=== PATIENT | female | born 1995 | race Caucasian/White ===

== ENCOUNTER 2016-06-23 01:59 | Emergency (ER) | payer MEDICAID ==
--- NOTE | 2016-06-23 02:25 | EDPHY ---
H & P Smoking Status: Never smoked Time Seen by Provider: 06/23/16 02:13 HPI/ROS: HPI Depression. 21-year-old female by private vehicle. She reports that she was at home tonight. She reports that she was drinking some whiskey mix with juice. She estimates 3-4 drinks. She reports that she was not taking a shower and became more depressed. She had some suicidal thoughts but denies any plan for action. She denies being suicidal at this time but states that she still feels depressed and think she should talk to somebody. No history of assault. She denies any particular event which has made her more depressed. ROS: Constitutional: No fever, no chills. No weakness. Eyes: No discharge. No changes in vision. ENT: No sore throat. No nasal congestion or rhinorrhea. Respiratory: No cough. No shortness of breath. Cardiac: No chest pain, no palpitations. Gastrointestinal: No abdominal pain, no vomiting, no diarrhea. Genitourinary: No hematuria. No dysuria or increased frequency with urination. Musculoskeletal: No back pain. No neck pain. No myalgias or arthralgias. Skin: No rashes. Neurological: No headache. No focal weakness or altered sensation. Past medical history: Postural orthostatic tachycardia syndrome, migraines, right ovarian cyst, depression. Social history: Has a roommate. Currently here by herself. Drinks alcohol. No smoking Physical Exam: General Appearance: Alert, no distress. This patient is responding to questions appropriately and in full sentences. This patient appears well- hydrated and well-nourished. Eyes: Pupils equal and round no pallor or injection. No lid edema, erythema or injection. Respiratory: There are no retractions, lungs are clear to auscultation with good air movement bilaterally. Cardiovascular: Regular rate and rhythm. No murmur. Gastrointestinal: Abdomen is soft and nontender, no masses, bowel sounds normal. No focal tenderness at McBurney's point. No Alva sign. Neurological: Motor sensory function is grossly intact. Cranial nerves are normal. Gait is normal. Skin: Warm and dry, no rashes. Musculoskeletal: Neck is supple and nontender. Extremities are symmetrical. All joints range without pain or impingement. Psychiatric: No agitation. Flat affect. Database: EKG: Imaging: Procedures: Emergency department course: I evaluated this patient at 2:25 a.m.. I feel she is suitable for behavioral health evaluation. [facility] notified. Will obtain appropriate blood work on their request. [facility] is requesting that standard blood work be sent on this patient before they evaluate her. This was done at 3:10 a.m.. 5:00 a.m., serum alcohol was 153. [facility] 1 evaluate her until it is less than 0.05. She awaits evaluation. 7:00 a.m., breath alcohol 0.08. Patient will be evaluated by [facility] later this morning. They are aware. She is not on an M1 hold or detainer. She is not suicidal at this time. Care turned over to Dr. Fran Flores at this time Differential Diagnosis: The differential diagnosis on this patient includes but is not limited to situational depression, major depression, alcohol intoxication, suicidal ideation. This represents a partial list of diagnoses considered. These considerations are based on history, physical exam, past history, reassessment and diagnostic testing. (Be Salazar) Constitutional: Initial Vital Signs Temperature (C) 36.8 C 06/23/16 02:05 Heart Rate 109 H 06/23/16 02:05 Respiratory Rate 16 06/23/16 02:05 Blood Pressure 142/94 H 06/23/16 02:05 O2 Sat (%) 94 06/23/16 02:05 O2 Delivery Mode Room Air Allergies/Adverse Reactions: metoprolol Allergy (Verified 06/23/16 02:03) Home Medications: Medication Instructions Recorded Nadolol [Nadolol 20 mg (RX)] 10/03/14 Ranitidine HCl 06/23/16 Medical Decision Making Other Provider: The patient was signed out to me at 0700. At 1025, I was informed by the mental health specialist that the patient's evaluation is complete and they feel that she can be safely discharged home. (Fran Flores) - Data Points Laboratory Results: Laboratory Results 06/23/16 02:55 06/23/16 02:55 06/23/16 06/23/16 06/23/16 02:55 02:55 02:55 WBC 7.54 10^3/uL 10^3/uL (3.80-9.50) RBC 5.14 10^6/uL 10^6/uL (4.18-5.33) Hgb 14.6 g/dL g/dL (12.6-16.3) Hct 45.2 % % (38.0-47.0) MCV 87.9 fL fL (81.5-99.8) MCH 28.4 pg pg (27.9-34.1) MCHC 32.3 g/dL L g/dL (32.4-36.7) RDW 13.4 % % (11.5-15.2) Plt Count 379 10^3/uL 10^3/uL (150-400) MPV 9.3 fL fL (8.7-11.7) Neut % (Auto) 48.8 % % (39.3-74.2) Lymph % (Auto) 40.6 % % (15.0-45.0) [place] % (Auto) 6.9 % % (4.5-13.0) Eos % (Auto) 2.9 % % (0.6-7.6) Baso % (Auto) 0.7 % % (0.3-1.7) Nucleat RBC Rel Count 0.0 % % (0.0-0.2) Absolute Neuts (auto) 3.68 10^3/uL 10^3/uL (1.70-6.50) Absolute Lymphs (auto) 3.06 10^3/uL H 10^3/uL (1.00-3.00) Absolute Monos (auto) 0.52 10^3/uL 10^3/uL (0.30-0.80) Absolute Eos (auto) 0.22 10^3/uL 10^3/uL (0.03-0.40) Absolute Basos (auto) 0.05 10^3/uL 10^3/uL (0.02-0.10) Absolute Nucleated RBC 0.00 10^3/uL 10^3/uL (0-0.01) Immature Gran % 0.1 % % (0.0-1.1) Immature Gran # 0.01 10^3/uL 10^3/uL (0.00-0.10) Sodium 142 mEq/L mEq/L (134-144) Potassium 3.8 mEq/L mEq/L (3.5-5.2) Chloride 106 mEq/L mEq/L (97-110) Carbon Dioxide 22 mEq/l mEq/l (22-31) Anion Gap 14 mEq/L mEq/L (8-16) BUN 11 mg/dL mg/dL (7-23) Creatinine 1.0 mg/dL mg/dL (0.6-1.0) Estimated GFR > 60 Glucose 91 mg/dL mg/dL (70-100) Calcium 10.2 mg/dL mg/dL (8.5-10.4) Beta HCG, Qual NEGATIVE Urine Opiates Screen Urine Barbiturates Ur Phencyclidine Scrn Ur Amphetamine Screen U Benzodiazepines Scrn Urine Cocaine Screen U Marijuana (THC) Screen Ethyl Alcohol 153 mg/dL H mg/dL (0-10) 06/23/16 02:50 WBC RBC Hgb Hct MCV MCH MCHC RDW Plt Count MPV Neut % (Auto) Lymph % (Auto) [place] % (Auto) Eos % (Auto) Baso % (Auto) Nucleat RBC Rel Count Absolute Neuts (auto) Absolute Lymphs (auto) Absolute Monos (auto) Absolute Eos (auto) Absolute Basos (auto) Absolute Nucleated RBC Immature Gran % Immature Gran # Sodium Potassium Chloride Carbon Dioxide Anion Gap BUN Creatinine Estimated GFR Glucose Calcium Beta HCG, Qual Urine Opiates Screen NEGATIVE (NEGATIVE) Urine Barbiturates NEGATIVE (NEGATIVE) Ur Phencyclidine Scrn NEGATIVE (NEGATIVE) Ur Amphetamine Screen NEGATIVE (NEGATIVE) U Benzodiazepines Scrn NEGATIVE (NEGATIVE) Urine Cocaine Screen NEGATIVE (NEGATIVE) U Marijuana (THC) Screen NEGATIVE (NEGATIVE) Ethyl Alcohol Departure - Departure Disposition: Home, Routine, Self-Care Clinical Impression: Situational depression Condition: Good Instructions: Suicide Prevention for Adults (ED) Additional Instructions: Follow-up with your mental health provider as directed. Return to the ED for thoughts of self-harm, racing thoughts or other concerns. Referrals: MAKSIM SONI [Other] - As per Instructions
[2016-06-23 03:14] LABS: % IMMATURE GRANULYOCYTES 0.1 % (0.0-1.1); ABSOLUTE IMMATURE GRANULOCYTES 0.01 10^3/uL (0.00-0.10); ADD DIFF? NO; ADD MORPH? NO; ADD SCAN? NO; ATYPICAL LYMPHOCYTE FLAG 10 (0-99); FRAGMENT RBC FLAG 0 (0-99); HEMATOCRIT 45.2 % (38.0-47.0); HEMOGLOBIN 14.6 g/dL (12.6-16.3); LEFT SHIFT FLG 0 (0-99); LIPEMIA HEMOLYSIS FLAG 80 (0-99); MEAN CELL HEMOGLOBIN 28.4 pg (27.9-34.1); MEAN CELL HEMOGLOBIN CONCENTR. 32.3 g/dL (32.4-36.7); MEAN CELL VOLUME 87.9 fL (81.5-99.8); MEAN PLATELET VOLUME 9.3 fL (8.7-11.7); PLATELET CLUMPS FLAG 0 (0-99); PLATELET COUNT 379 10^3/uL (150-400); RED BLOOD CELL COUNT 5.14 10^6/uL (4.18-5.33); RED CELL DISTRIBUTION WIDTH 13.4 % (11.5-15.2)
[2016-06-23 03:32] LABS: ANION GAP 14 mEq/L (8-16); CALCIUM 10.2 mg/dL (8.5-10.4); CARBON DIOXIDE 22 mEq/l (22-31); CHLORIDE 106 mEq/L (97-110); ETHANOL SERUM 153 mg/dL (0-10); GLOMERULAR FILTRATION RATE > 60; GLUCOSE 91 mg/dL (70-100); POTASSIUM 3.8 mEq/L (3.5-5.2); SODIUM 142 mEq/L (134-144)
[2016-06-23 10:38] VITALS: BP 148/92; PULSE 105; RESP 18; TEMP 98.1; O2SAT 97
== END 2016-06-23 10:36 | disposition home or self-care (01) ==
DX: F43.21 Adjustment disorder with depressed mood (principal)
CPT/HCPCS: 80305; G0480

== ENCOUNTER 2017-08-28 09:03 | Emergency (ER) | payer MEDICAID ==
[2017-08-28 09:21] VITALS: BP 128/79
--- NOTE | 2017-08-28 10:24 | EDPHY ---
H & P Stated Complaint: Rectal pain after BM;denies melena;hx hemorrhoids Time Seen by Provider: 08/28/17 10:24 HPI/ROS: HPI: This is a 22-year-old female who presents with Chief Complaint: Rectal pain after BM;denies melena;hx hemorrhoids Location: rectal Quality: Pain, spasm Duration: 30 min prior to arrival Signs and Symptoms: no fever, no nausea, no vomiting, no hematemesis, no blood in stool, no abdominal bloating, no diarrhea, no back pain, no urinary symptoms , no vaginal bleeding/discharge, no indigestion, no chest pain, no shortness of breath Timing: Acute Severity: Moderate Context: Patient is a homosexual presents with complaints of sudden onset of rectal pain and spasm after having a bowel movement approximately 30 min to 1 hr prior to arrival. She reports that is constant and severe. She reports that it is radiating into her bladder. She denies burning with urination/ hematuria. She denies any blood in her stool. She does have 2 small external hemorrhoids but denies any bleeding. She reports that she was diagnosed with hemorrhoids 1 year ago and was given suppositories. She has since ran out of these. She is requesting another prescription for these. LMP 2-3 weeks ago. Modifying Factors: None Comment: ROS: see HPI Constitutional: No fever, no chills, no weight loss Eyes: No blurred vision Respiratory: No shortness of breath, no cough Cardiovascular: No chest pain, no palpitations Gastrointestinal: No nausea, no vomiting, no diarrhea, no hematemesis, no blood in stool Genitourinary: No dysuria, no blood in urine Extremities: No myalgias, no edema Neurologic: No weakness, no numbness Skin: No rashes, no petechiae Hematologic: No bruising, no bleeding MEDICAL/SURGICAL/SOCIAL HISTORY: Medical history: POTS (POSTURAL ORTHOSTATIC TACHYCARDIA SYNDROME), migraines, R OVARIAN CYST, depression Surgical history: Denies Social history: Family history noncontributory. CONSTITUTIONAL: Extremely anxious well-appearing young adult white female, partner at bedside holding hand, awake and alert, no obvious distress HEENT: Atraumatic and normocephalic, PERRL, EOMI. Nares patent; no rhinorrhea; no nasal mucosal edema. Tympanic membranes clear. Oropharynx clear, no exudate and moist pink mucosa. Airway patent. No lymphadenopathy. No meningismus. Cardiovascular: Normal S1/S2, regular rate, regular rhythm, without murmur rub or gallop. PULMONARY/CHEST: Symmetrical and nontender. Clear to auscultation bilaterally. Good air movement. No accessory muscle usage. ABDOMEN: Soft, nondistended, nontender, no rebound, no guarding, no peritoneal signs, no masses or organomegaly. No CVAT. RECTAL: Small non thrombosed hemorrhoid noted, no fissures. guaiac unable to be performed as patient refused EXTREMITIES: 2/2 pulses, strength 5/5, no deformities, no clubbing, no cyanosis or edema. NEUROLOGICAL: no focal neuro deficits. GCS 15. SKIN: Warm and dry, no erythema. no rash. Good capillary refill. Source: Patient Exam Limitations: No limitations - Personal History LMP (Females 10-55): 15-21 Days Ago - Medical/Surgical History Hx Asthma: No Hx Chronic Respiratory Disease: No Hx Diabetes: No Hx Cardiac Disease: Yes Hx Renal Disease: No Hx Cirrhosis: No Hx Alcoholism: No Hx HIV/AIDS: No Hx Splenectomy or Spleen Trauma: No Other PMH: POTS (POSTURAL ORTHOSTATIC TACHYCARDIA SYNDROME), migraines, R OVARIAN CYST, depression - Social History Smoking Status: Never smoked Constitutional: Initial Vital Signs Temperature (C) 36.5 C 08/28/17 09:18 Heart Rate 74 08/28/17 09:18 Respiratory Rate 20 08/28/17 09:18 Blood Pressure 128/79 H 08/28/17 09:18 O2 Sat (%) 98 08/28/17 09:18 O2 Delivery Mode Room Air Allergies/Adverse Reactions: metoprolol Allergy (Mild, Verified 08/28/17 09:17) Rash Home Medications: Medication Instructions Recorded Hydrocortisone Acetate 25 mg TN Q6 PRN #12 supp 08/28/17 [Hemorrhoidal Hc 25 mg supp (*)] Opium/Belladonna Alkaloids 1 each RC DAILY PRN #6 supp.rect 08/28/17 [Belladonna-Opium 16.2-30 Supp] Medical Decision Making ED Course/Re-evaluation: Patient is clearly anxious and given 2 mg p.o. Ativan with near complete resolution of symptoms. Patient's rectal exam shows external hemorrhoids. Patient adamantly refused for digital rectal exam. Given hemorrhoid suppositories as well as Belladonna suppositories. Advised to follow up with primary care, gastroenterology, OBGYN. Abdomen soft and nontender. Doubt surgical process. Do not feel that laboratory studies or x-ray imaging is needed at this time. This patient was seen under the supervision of my secondary supervising physician. I evaluated care for this patient independently. Differential Diagnosis: Differential diagnosis includes but is not limited to lower GI bleeding, diverticulitis, micro perforation, external thrombosed hemorrhoid, anal fissure , anal laceration. - Data Points Medications Given: Discontinued Medications Lorazepam (Ativan) 2 mg PO EDNOW ONE Stop: 08/28/17 10:35 Last Admin: 08/28/17 10:36 Dose: 2 mg Departure - Departure Disposition: Home, Routine, Self-Care Clinical Impression: External hemorrhoids without complication, Rectal sphincter spasm Condition: Good Instructions: Hemorrhoids (ED), Rectal Bleeding (ED) Additional Instructions: Consume a minimum of 8-10 glasses of water or electrolyte fluid replacement drinks that include Gatorade, Powerade, Pedialyte. Eat a bland diet for the next 48 hours and then slowly advance as tolerated. Please establish care with OBGYN and Gastroenterology. Referrals: MAKSIM IGNACIO [Other] - As per Instructions Luis Armando Woody MD [Medical Doctor] - As per Instructions [facility] [Provider Group] - As per Instructions Prescriptions: Hydrocortisone Acetate [Hemorrhoidal Hc 25 mg supp (*)] 25 mg TN Q6 PRN #12 supp PRN Reason: Pre Ect Opium/Belladonna Alkaloids [Belladonna-Opium 16.2-30 Supp] 1 each RC DAILY PRN # 6 supp.rect PRN Reason: Pre Ect
[2017-08-28] MEDS ORDERED: LORazepam 1 MG TAB PO ONE (10:34)
[2017-08-28] MEDS ORDERED: LORazepam 1 MG TAB ONE (10:35)
== END 2017-08-28 11:10 | disposition home or self-care (01) ==
DX: K64.4 Residual hemorrhoidal skin tags (principal); K59.4 Anal spasm

== ENCOUNTER 2017-09-17 17:10 | Emergency (ER) | payer MEDICAID ==
[2017-09-17] MEDS ORDERED: LORazepam 2 MG/ML INJ IVP ONE (17:44)
--- NOTE | 2017-09-17 17:46 | EDPHY ---
H & P Stated Complaint: HYPERVENTILATING/CARPAL SPASMS/CP/ANXIETY Time Seen by Provider: 09/17/17 17:33 HPI/ROS: CHIEF COMPLAINT: Chest pain HISTORY OF PRESENT ILLNESS: Patient is a 22-year-old female with a history of anxiety attacks and POTS who states that she began having chest pain that began about 2 hr ago and hyperventilation and spasm in her hands and also noticed that her blood pressure was elevated 140/80. She denies palpitations or lightheadedness. She felt slightly nauseous but has not vomited. No diaphoresis. She states that this feels like a panic attack except she has never had chest pain with them before. REVIEW OF SYSTEMS: Constitutional: denies: chills, fever, recent illness, recent injury EENTM: denies: blurred vision, double vision, nose congestion Respiratory: denies: cough, shortness of breath Cardiac: See HPI denies: irregular heart rate, lightheadedness, palpitations Gastrointestinal/Abdominal: denies: abdominal pain, diarrhea, nausea, vomiting, blood streaked stools Genitourinary: denies: dysuria, frequency, hematuria, pain Musculoskeletal: denies: joint pain, muscle pain Skin: denies: lesions, rash, jaundice, bruising Neurological: denies: headache, numbness, paresthesia, tingling, dizziness, weakness Hematologic/Lymphatic: denies: blood clots, easy bleeding, easy bruising Immunologic/allergic: denies: HIV/AIDS, transplant EXAM: GENERAL: Anxious, tearful, well-nourished and in no acute distress. HEAD: Atraumatic, normocephalic. EYES: Pupils equal round and reactive to light, extraocular movements intact, sclera anicteric, conjunctiva are normal. ENT: TMs normal, nares patent, oropharynx clear without exudates. Moist mucous membranes. NECK: Normal range of motion, supple without lymphadenopathy or JVD. LUNGS: Breath sounds clear to auscultation bilaterally and equal. No wheezes rales or rhonchi. HEART: Regular rate and rhythm without murmurs, rubs or gallops. ABDOMEN: Soft, nontender, normoactive bowel sounds. No guarding, no rebound. No masses appreciated. BACK: No CVA tenderness, no spinal tenderness, step-offs or deformities EXTREMITIES: Normal range of motion, no pitting or edema. No clubbing or cyanosis. NEUROLOGICAL: Cranial nerves II through XII grossly intact. Normal speech, normal gait. 5/5 strength, normal movement in all extremities, normal sensation PSYCH: Anxious SKIN: Warm, dry, normal turgor, no visible rashes or lesions. Source: Patient Exam Limitations: No limitations - Personal History LMP (Females 10-55): 1-7 Days Ago Current Tetanus/Diphtheria Vaccine: Yes - Medical/Surgical History Hx Asthma: No Hx Chronic Respiratory Disease: No Hx Diabetes: No Hx Cardiac Disease: No Hx Renal Disease: No Hx Cirrhosis: No Hx Alcoholism: No Hx HIV/AIDS: No Hx Splenectomy or Spleen Trauma: No Other PMH: POTS (POSTURAL ORTHOSTATIC TACHYCARDIA SYNDROME), migraines, R OVARIAN CYST, depression - Family History Significant Family History: No pertinent family hx - Social History Smoking Status: Current every day smoker Alcohol Use: Sober Drug Use: None Constitutional: Initial Vital Signs Temperature (C) 36.5 C 09/17/17 17:15 Heart Rate 103 H 09/17/17 17:15 Respiratory Rate 25 H 09/17/17 17:15 Blood Pressure 139/96 H 09/17/17 17:15 O2 Sat (%) 100 09/17/17 17:15 O2 Delivery Mode Room Air Allergies/Adverse Reactions: metoprolol Allergy (Mild, Verified 09/17/17 17:14) Rash Home Medications: Medication Instructions Recorded Hydrocortisone Acetate 25 mg GA Q6 PRN #12 supp 08/28/17 [Hemorrhoidal Hc 25 mg supp (*)] Opium/Belladonna Alkaloids 1 each RC DAILY PRN #6 supp.rect 08/28/17 [Belladonna-Opium 16.2-30 Supp] Medical Decision Making - Diagnostics EKG Interpretation: An EKG obtained and was read and documented in trace view. Please see trace view for full reading and report. Sinus rhythm, no acute ischemic changes, respiratory variation ED Course/Re-evaluation: 6:35 p.m. patient is no longer having pain but is concerned because after receiving Ativan she feels like she is out of her body. Her friend reports that she has a history of schizoaffective disorder and that she is anxious after receiving Ativan and thinks that she is hearing things. She does not wish to speak to a counselor or therapist. They are asking for some IV fluids to try and "flush out the Ativan". We are also still waiting for chest x-ray. Otherwise for lab work is reassuring. 8:00 p.m. the patient is feeling completely better. She is eager to go home. Testing is unremarkable. She feels reassured. Differential Diagnosis: Partial list of the Differential diagnosis considered include but were not limited to; anxiety attack, hyperventilation, muscle spasm and although unlikely based on the history and physical exam, I also considered acute coronary disease, arrhythmia, dissection, PE, pneumothorax, pneumonia. I discussed these differential diagnoses and the plan with the patient as well as the usual and expected course. The patient understands that the diagnosis is provisional and that in medicine we are not always correct and that further workup is often warranted. Usual and customary warnings were given. All of the patient's questions were answered. The patient was instructed to return to the emergency department should the symptoms at all worsen or return, otherwise to followup with the physician as we discussed. - Data Points Laboratory Results: Laboratory Results 09/17/17 17:55 09/17/17 17:55 Medications Given: Discontinued Medications Sodium Chloride (Ns) 1,000 mls @ 0 mls/hr IV ONCE ONE PRN Reason: Wide Open Stop: 09/17/17 18:43 Last Admin: 09/17/17 18:42 Dose: 1,000 mls Lorazepam (Ativan Injection) 1 mg IVP EDNOW ONE Stop: 09/17/17 17:45 Last Admin: 09/17/17 18:13 Dose: 1 mg Point of Care Test Results: Chemistry 09/17/17 17:57 POC Troponin I 0.00 ng/mL ng/mL (0.00-0.08) Departure - Departure Disposition: Home, Routine, Self-Care Clinical Impression: Panic attack Condition: Fair Instructions: Panic Attack (ED) Referrals: MAKSIM IGNACIO [Other] - As per Instructions
--- NOTE | 2017-09-17 17:48 | CPEKG ---
Heart Rate: 77 RR Interval: 779 P-R Interval: 192 QRSD Interval: 78 QT Interval: 368 QTC Interval: 417 P [place]: 72 QRS [place]: 75 T Wave [place]: 34 EKG Severity - ABNORMAL ECG - EKG Impression: SINUS RHYTHM Electronically Signed By: Jose Luis Arora 17-Sep-2017 17:50:06
[2017-09-17 18:16] LABS: CREATINE KINASE 142 IU/L (0-156)
[2017-09-17 18:21] LABS: PLATELET COUNT 344 10^3/uL (150-400)
[2017-09-17 18:23] LABS: INR 1.05 (0.83-1.16); PROTIME(PATIENT) 13.9 SEC (12.0-15.0)
[2017-09-17] MEDS ORDERED: NS 1,000 ML IV ONE (18:42)
[2017-09-17 20:02] VITALS: BP 130/88
== END 2017-09-17 20:15 | disposition home or self-care (01) ==
DX: F41.0 Panic disorder [episodic paroxysmal anxiety] (principal); F17.200 Nicotine dependence, unspecified, uncomplicated
CPT/HCPCS: 84484-PO; 96374; J2060

== ENCOUNTER 2018-06-25 17:53 | Emergency (ER) | payer MEDICAID ==
--- NOTE | 2018-06-25 20:32 | EDPHY ---
H & P Time Seen by Provider: 06/25/18 19:42 HPI/ROS: CHIEF COMPLAINT: High blood pressure HISTORY OF PRESENT ILLNESS: Patient is a 23-year-old female who presents emergency department concerned that her medication is causing her to have high blood pressure. The patient recently started Zyprexa. She states that she has been having high blood pressure. She measured 130 systolic at home. The patient also has had "finger tightness." The patient states that she is concerned that Zyprexa might not be the right medicine for her. However, she needs an EKG prior to switching medicine. She requested an EKG. REVIEW OF SYSTEMS: 10 systems were reveiwed and are negative with the exception of the elements mentioned in the history of present illness. Past Medical/Surgical History: Includes POTS, , migraines, ovarian cyst, depression Smoking Status: Current every day smoker Physical Exam: Vitals noted GENERAL: Well-appearing, in no acute distress, alert. HEENT: Eyes normal to inspection, normal pharynx, no signs of dehydration. NECK: Normal, supple. RESPIRATORY: Clear to auscultation bilaterally, no rales, rhonchi or wheezing. CVS: Regular rate and rhythm, no rubs, murmurs, or gallops. ABDOMEN: Soft, nontender, nondistended, no organomegaly. BACK: Normal to inspection, no CVA tenderness. SKIN: Normal color, no rash, warm, dry. No pallor. EXTREMITIES: No pedal edema, no calf tenderness, no Homans sign or cords, no joint swelling. NEURO/PSYCH: Alert and oriented, normal mood and affect, normal motor sensory exam. No obvious cranial nerve deficit. Constitutional: Initial Vital Signs Temperature (C) 36.5 C 06/25/18 18:14 Heart Rate 64 06/25/18 18:14 Respiratory Rate 18 06/25/18 18:14 Blood Pressure 111/81 H 06/25/18 18:14 O2 Sat (%) 99 06/25/18 18:14 O2 Delivery Mode Room Air Allergies/Adverse Reactions: metoprolol Allergy (Mild, Verified 09/17/17 17:14) Rash Home Medications: Medication Instructions Recorded Zyprexa 06/25/18 Medical Decision Making ED Course/Re-evaluation: In the emergency department discussed possible etiologies with the patient. I answered all her questions. EKG was ordered. EKG shows normal sinus rhythm, normal rate, normal axis, normal intervals. There are no ST or T-wave abnormalities. EKG is normal as interpreted by me. I discussed the findings with the patient. She was given a copy of her EKG. She is given warnings prior to leaving. The patient feels comfortable with this plan. Differential Diagnosis: My differential includes but is not limited to medication reaction, hypertension , dysrhythmia Departure - Departure Disposition: Home, Routine, Self-Care Clinical Impression: Medication reaction Condition: Good Instructions: Hypertension (ED) Additional Instructions: Return with increasing blood pressure, headache, weakness, numbness or any other concerns. Referrals: LELAND SONI [Other] - 2-3 days, call for appt.
[2018-06-25 20:40] VITALS: BP 147/102
--- NOTE | 2018-06-25 21:38 | CPEKG ---
Test Reason : OPEN Blood Pressure : / mmHG Vent. Rate : 062 BPM Atrial Rate : 067 BPM P-R Int : 185 ms QRS Dur : 070 ms QT Int : 398 ms P-R-T Axes : 046 072 040 degrees QTc Int : 405 ms Sinus rhythm Confirmed by Joy Hou ([id number]) on 06/25/2018 9:38:13 PM Referred By: PHYSICIAN ED Confirmed By:Joy Hou
== END 2018-06-25 20:39 | disposition home or self-care (01) ==
DX: I10 Essential (primary) hypertension (principal); T43.595A Adverse effect of other antipsychotics and neuroleptics, initial encounter; F32.9 Major depressive disorder, single episode, unspecified